=== PATIENT | female | born 1965 | race Caucasian/White ===

== ENCOUNTER → 2017-08-16 | Outpatient (CLI) | payer OTHER ==
[~2017-08-16] MED LIST: ACYCLOVIR400 MG PO; ARIPIPRAZOLE10 MG PO; DULOXETINE HCL30 MG PO; FLOMAX0.4 MG PO; HYDROCODONE BIT1 T11 PO; IBU800 M1 PO; LEADER NIC14 MG/24 H TD; LORAZEPAM1 MG PO; Motrin,Rufen800 MG PO; OMEPRAZOLE D/R20 MG PO; OXYBUTYNIN CHLOR5 MG PO; SIMVASTATIN10 MG PO; TRAZADONE HYDR100 MG PO
== END ==
LOC: RAD 12:36
DX: J40 Bronchitis, not specified as acute or chronic (principal); R06.02 Shortness of breath; Z87.891 Personal history of nicotine dependence

== ENCOUNTER 2017-08-19 23:35 | Emergency (ER) | payer OTHER ==
[~2017-08-19] VITALS: Ht 162.5 cm; Wt 91.6 kg
[2017-08-19 23:55] VITALS: BP 131/88
== END 2017-08-20 03:00 | disposition short-term general hospital (02) ==
LOC: ED 23:35
DX: S01.312A Laceration without foreign body of left ear, initial encounter (principal); Z88.6 Allergy status to analgesic agent; Z91.030 Bee allergy status; Y08.89XA Assault by other specified means, initial encounter; Y93.89 Activity, other specified; Y92.89 Other specified places as the place of occurrence of the external cause; Y99.8 Other external cause status

== ENCOUNTER → 2018-03-03 | Outpatient (CLI) | payer OTHER | END | disposition home or self-care (01) | LOC: MAMMO 10:21 | DX: Z12.31 Encounter for screening mammogram for malignant neoplasm of breast (principal) ==

== ENCOUNTER → 2019-03-28 | Outpatient (CLI) | payer OTHER | END | disposition home or self-care (01) | LOC: MAMMO 14:56 | DX: Z12.31 Encounter for screening mammogram for malignant neoplasm of breast (principal) ==

== ENCOUNTER 2019-07-24 12:21 | Emergency (ER) | payer OTHER ==
[~2019-07-24] VITALS: Ht 162.5 cm; Wt 83.9 kg
[2019-07-24 12:22] VITALS: BP 120/93
[2019-07-24] MEDS ORDERED: NAPROSYN500 MG PO ×2 (13:10→14:19)
[2019-07-24] MEDS ORDERED: AMOXICILLIN500 M2 PO ×2 (13:10→14:19)
== END 2019-07-24 13:31 | disposition home or self-care (01) ==
LOC: ED 12:21
DX: K08.89 Other specified disorders of teeth and supporting structures (principal); Z91.030 Bee allergy status; Z88.5 Allergy status to narcotic agent; Z79.899 Other long term (current) drug therapy

== ENCOUNTER 2019-08-05 17:09 | Emergency (ER) | payer OTHER ==
[~2019-08-05] VITALS: Ht 162.5 cm; Wt 88.9 kg
[~2019-08-05 17:09] MED LIST changes: +AMOXICILLIN500 M2 PO; +NAPROSYN500 MG PO
[2019-08-05 17:11] VITALS: BP 114/76
[2019-08-05] MEDS ORDERED: TYLENOL325 M1 PO (17:36)
[2019-08-05] MEDS ORDERED: NAPROSYN500 MG PO (17:36)
[2019-08-05] MEDS ORDERED: PENICILLIN-VK500 MG PO (17:36)
== END 2019-08-05 18:31 | disposition home or self-care (01) ==
LOC: ED 17:09
DX: K04.7 Periapical abscess without sinus (principal); F17.210 Nicotine dependence, cigarettes, uncomplicated; Z79.899 Other long term (current) drug therapy; Z91.030 Bee allergy status; Z88.5 Allergy status to narcotic agent

== ENCOUNTER → 2019-08-23 | Outpatient (CLI) | payer OTHER ==
[~2019-08-23] MED LIST changes: +PENICILLIN-VK500 MG PO; +TYLENOL325 M1 PO
--- NOTE | ~2019-08-23 | PF ---
[place], [place] PULMONARY FUNCTION TEST NAME: SARAH STEPHENSON UNIT #: [id number] ROOM: DOCTOR: CANDICE GODDARD MD,RAJAT BIRTHDATE: [birth year] DOS: 08/23/2019 PULMONARY FUNCTION TEST HISTORY: The 54-year-old female, height of 64 inches, weight 296 pounds with BMI of 33.6. Test was done, patient's assessment of COPD. The patient reported symptoms of shortness of breath, productive cough and wheezing as well. Tobacco is noted actively of 3/4 pack of cigarettes per day, used for 32 years. SPIROMETRY: FVC was recorded as a 2.92 liters at 83% predicted value, FEV1 of 2.46 liters as 90% predicted value. Ratio of FEV1/FVC recorded as 84%. There were no post-bronchodilator improvement or changes noted of any significance. LUNG VOLUME: Thoracic gas volume 74%, residual volume 89%, total lung capacity 88%. The patient's lung diffusion recorded 85%. The patient's airway resistance and passive conductance noted mildly abnormal with postbronchodilator improvement. FINAL IMPRESSION: Possible consideration of mild reversible obstructive lung disease. Clinical correlation would be advised. RAJAT HARVEY MD CM:PFREPORT:PULMONARY FUNCTION TEST [id number] RAJAT GODDARD MD
== END | disposition home or self-care (01) ==
LOC: CP 12:24
DX: J44.1 Chronic obstructive pulmonary disease with (acute) exacerbation (principal)

== ENCOUNTER 2021-05-26 03:42 | Emergency (ER) | payer OTHER ==
[~2021-05-26] VITALS: Ht 162.5 cm; Wt 102.1 kg
[2021-05-26 03:51] VITALS: BP 136/72
[2021-05-26 04:21] LABS: BASO % 0.2 % (0.0-1.0); HEMATOCRIT 40.8 % (37.0-47.0); LYMPH # 2.2 10*3/uL (1.3-4.4); LYMPH % 47.2 % (27.0-41.0); MEAN CELL VOLUME 87.9 fl (81.0-99.0); MEAN CORPUSCULAR HGB 29.1 pg (27.0-31.0); MEAN CORPUSCULAR HGB CONC 33.1 g/dl (33.0-37.0); MEAN PLATELET VOLUME 10.4 fl (9.6-12.3); MONO # 0.4 10*3/uL (0.1-1.0); MONO % 8.5 % (3.0-9.0); NEUT % 43.9 % (47.0-73.0); PLATELET COUNT AUTOMATED 159 10*3/uL (130-400); RED BLOOD COUNT 4.64 10*6/uL (4.10-5.10); RED CELL DISTRI WIDTH 15.3 % (0-14.5); WHITE BLOOD COUNT 4.6 10*3/uL (4.8-10.8)
[2021-05-26 04:21] LABS: BILIRUBIN Negative (Negative); BLOOD Negative (Negative); CLARITY Clear (Clear); COLOR Yellow (Yellow); GLUCOSE Negative (Negative); KETONE Negative (Negative); LEUKO ESTERASE Negative (Negative); NITRITE Negative (Negative); PH 6.5 (4.5-8.0); UROBILINOGEN 0.2 E.U./dl (0.0-1.0)
[2021-05-26 04:34] LABS: BACTERIA 1+; RBC 16-20 rbc/hpf (0-2)
[2021-05-26 04:41] LABS: ALBUMIN 3.5 gm/dl (3.1-4.5); CREATININE 1.19 mg/dL (0.55-1.02); POTASSIUM 3.9 mmol/L (3.5-5.1); TOTAL PROTEIN 7.2 gm/dL (6.4-8.2)
[2021-05-26] MEDS ORDERED: ZOFRAN4 MG PO (04:55)
== END 2021-05-26 05:41 | disposition home or self-care (01) ==
LOC: ED 03:42
PROVIDERS: Emergency Medicine
DX: U07.1 COVID-19 (principal); Z91.030 Bee allergy status; Z88.5 Allergy status to narcotic agent

== ENCOUNTER → 2021-08-29 | Outpatient (CLI) | payer OTHER ==
[~2021-08-29] MED LIST changes: +ABILIFY20 MG PO; +BUSPIRONE30 MG PO; +FLONASE ALLERG9.9 ML NAS; +NATURE'S BLEND F1 MG PO; +OMEPRAZOLE40 MG PO; +REMERON15 M2 PO; +VIIBRYD40 PO; +VISTARIL50 MG PO; +ZOCOR40 MG PO; +ZOFRAN4 MG PO
== END | disposition home or self-care (01) ==
LOC: CARD 08-27 08:00
PROVIDERS: ATTEND Internal Medicine
DX: R06.00 Dyspnea, unspecified (principal); R07.89 Other chest pain; R06.02 Shortness of breath

== ENCOUNTER → 2021-10-15 | Outpatient (CLI) | payer OTHER ==
[~2021-10-15] MED LIST changes: +EPIPEN 2-P0.3 MG/0.3 IJ; +PROVENTIL HFA6.7 GM INH; +SYMB160 INH; +ZANAFLEX6 M1 PO
== END | disposition home or self-care (01) ==
LOC: CARD 00:08
PROVIDERS: ATTEND Internal Medicine
DX: R07.89 Other chest pain (principal)

== ENCOUNTER → 2022-10-22 | Outpatient (CLI) | payer OTHER | END | disposition home or self-care (01) | LOC: MAMMO 10-06 15:30 | PROVIDERS: ATTEND Internal Medicine | DX: Z12.31 Encounter for screening mammogram for malignant neoplasm of breast (principal); N63.13 Unspecified lump in the right breast, lower outer quadrant; N64.9 Disorder of breast, unspecified ==

== ENCOUNTER → 2023-09-10 | Outpatient (CLI) | payer OTHER | END | disposition home or self-care (01) | LOC: RAD 10:09 | PROVIDERS: ATTEND Nurse Practitioner Family | DX: M25.461 Effusion, right knee (principal); M25.861 Other specified joint disorders, right knee; M25.561 Pain in right knee ==

== ENCOUNTER → 2024-04-14 | Outpatient (CLI) | payer OTHER ==
[2024-04-14 10:11] LABS: ALKALINE PHOSPHATASE 85 U/L (46-116); BUN 10 mg/dl (9-23); CHLORIDE 108 mmol/L (98-107); POTASSIUM 3.6 mmol/L (3.4-5.1); SGPT/ALT 14 U/L (5-49); TOTAL PROTEIN 7.4 gm/dL (6.0-8.0)
== END | disposition home or self-care (01) ==
LOC: LAB 09:20
PROVIDERS: ATTEND Orthopaedic Surgery
DX: M25.569 Pain in unspecified knee (principal); R53.83 Other fatigue

== ENCOUNTER → 2025-01-16 | Outpatient (CLI) | payer OTHER ==
[2025-01-16 16:08] LABS: ALKALINE PHOSPHATASE 84 U/L (46-116); BUN 11 mg/dl (9-23); CHLORIDE 107 mmol/L (98-107); SGPT/ALT 18 U/L (5-49); TOTAL PROTEIN 7.6 gm/dL (6.0-8.0)
== END | disposition home or self-care (01) ==
LOC: MAMMO 01:22 → LAB 01:22 → MAMMO 16:00
PROVIDERS: Orthopaedic Surgery; ATTEND Nurse Practitioner Family
DX: Z12.31 Encounter for screening mammogram for malignant neoplasm of breast (principal); M17.11 Unilateral primary osteoarthritis, right knee; R53.83 Other fatigue; N64.89 Other specified disorders of breast; N63.15 Unspecified lump in the right breast, overlapping quadrants

== ENCOUNTER 2025-02-04 15:58 | Emergency (ER) | payer OTHER ==
[~2025-02-04] VITALS: Ht 162.5 cm; Wt 105.7 kg
[2025-02-04 16:06] VITALS: BP 136/75
[2025-02-04] MEDS ORDERED: SODIUM CHLORIDE 0.9% 1,000 ML IV ONE (16:15)
[2025-02-04] MEDS ORDERED: LORazepam 1 MG TAB PO ONE (16:15)
[2025-02-04 16:39] LABS: BASO % 0.1 % (0.0-1.0); EOS % 0.2 % (1.0-4.0); HEMATOCRIT 45.5 % (37.0-47.0); MEAN CELL VOLUME 88.5 fl (81.0-99.0); MEAN CORPUSCULAR HGB 28.4 pg (27.0-31.0); MEAN CORPUSCULAR HGB CONC 32.1 g/dl (33.0-37.0); MEAN PLATELET VOLUME 9.5 fl (9.6-12.3); MONO % 5.8 % (3.0-9.0); NEUT # 12.3 10*3/uL (2.3-7.9); NEUT % 70.6 % (47.0-73.0); PLATELET COUNT AUTOMATED 322 10*3/uL (130-400); RED BLOOD COUNT 5.14 10*6/uL (4.10-5.10); RED CELL DISTRI WIDTH 15.1 % (0-14.5); WHITE BLOOD COUNT 17.5 10*3/uL (4.8-10.8)
[2025-02-04 16:57] LABS: BUN 17 mg/dl (9-23); CHLORIDE 105 mmol/L (98-107)
[2025-02-04 17:26] LABS: BILIRUBIN 1+ (Negative); BLOOD Negative (Negative); CLARITY Clear (Clear); COLOR Dark Yellow (Yellow); GLUCOSE Negative (Negative); KETONE Trace (Negative); LEUKO ESTERASE 1+ (Negative); NITRITE Negative (Negative); PH 5.5 (4.5-8.0)
[2025-02-04 17:33] LABS: URINE AMPHETAMINES Negative (1000ng/ml); URINE BARBITURATES Negative (200ng/ml); URINE BENZODIAZEPINES Negative (200ng/ml); URINE CANNABINOIDS (THC) Positive (50ng/ml); URINE COCAINE Positive (300ng/ml); URINE METHADONE Negative (300ng/ml); URINE OPIATES Negative (300ng/ml); URINE PHENCYCLIDINE Negative (25ng/ml)
[2025-02-04 17:35] LABS: BACTERIA 2+
[2025-02-04] MEDS ORDERED: cefTRIAXone Sodium 1 GM/10 ML SYR IV ONE (17:40)
[2025-02-04] MEDS ORDERED: SEPTDS PO (17:45)
[2025-02-05] MEDS ORDERED: SEPTDS PO (10:57)
== END 2025-02-04 18:02 | disposition home or self-care (01) ==
LOC: ED 15:58
PROVIDERS: Emergency Medicine
DX: R56.9 Unspecified convulsions (principal); F14.10 Cocaine abuse, uncomplicated; N39.0 Urinary tract infection, site not specified; Z79.899 Other long term (current) drug therapy; F32.A Depression, unspecified; F41.9 Anxiety disorder, unspecified; Z91.030 Bee allergy status; Z88.5 Allergy status to narcotic agent

== ENCOUNTER → 2025-02-14 | Outpatient (CLI) | payer OTHER ==
[~2025-02-14] MED LIST changes: +SEPTDS PO
== END | disposition home or self-care (01) ==
LOC: US 15:50
PROVIDERS: ATTEND Nurse Practitioner Women's Health
DX: N85.8 Other specified noninflammatory disorders of uterus (principal); N95.0 Postmenopausal bleeding; R18.8 Other ascites

== ENCOUNTER → 2025-03-21 | Outpatient (CLI) | payer OTHER ==
[2025-03-21 15:37] LABS: BASO % 0.3 % (0.0-1.0); EOS # 0.1 10*3/uL (0.0-0.4); EOS % 0.7 % (1.0-4.0); HEMATOCRIT 40.6 % (37.0-47.0); MEAN CELL VOLUME 86.8 fl (81.0-99.0); MEAN CORPUSCULAR HGB 28.6 pg (27.0-31.0); MEAN PLATELET VOLUME 10.3 fl (9.6-12.3); MONO # 0.6 10*3/uL (0.1-1.0); MONO % 7.3 % (3.0-9.0); NEUT # 4.8 10*3/uL (2.3-7.9); NEUT % 55.9 % (47.0-73.0); PLATELET COUNT AUTOMATED 261 10*3/uL (130-400); RED BLOOD COUNT 4.68 10*6/uL (4.10-5.10); WHITE BLOOD COUNT 8.7 10*3/uL (4.8-10.8)
[2025-03-21 15:47] LABS: BILIRUBIN Negative (Negative); BLOOD Negative (Negative); CLARITY Clear (Clear); COLOR Yellow (Yellow); GLUCOSE Negative (Negative); KETONE Trace (Negative); LEUKO ESTERASE Negative (Negative); NITRITE Negative (Negative); PH 5.5 (4.5-8.0); SPECIFIC GRAVITY 1.025 (1.001-1.030)
[2025-03-21 15:58] LABS: ALKALINE PHOSPHATASE 91 U/L (46-116); BUN 10 mg/dl (9-23); CHLORIDE 106 mmol/L (98-107); SGPT/ALT 9 U/L (5-49); TOTAL PROTEIN 7.2 gm/dL (6.0-8.0)
[2025-03-21 16:02] LABS: BACTERIA 2+
== END | disposition home or self-care (01) ==
LOC: LAB 15:05
PROVIDERS: ATTEND Orthopaedic Surgery
DX: Z01.818 Encounter for other preprocedural examination (principal)

== ENCOUNTER 2025-04-09 15:46 | Inpatient (IN) | payer OTHER ==
[~2025-04-09] VITALS: Ht 162.5 cm; Wt 109.4 kg
[2025-04-09] VITALS (8 sets, daily range): BP systolic 65–121; BP diastolic 32–59
[2025-04-09] MEDS ORDERED: SODIUM CHLORIDE 0.9% 1,000 ML IV ONE (17:00)
[2025-04-09] MEDS ORDERED: Ondansetron Hydrochloride 4 MG/2 ML VIAL IV ONE (17:00)
[2025-04-09 17:30] LABS: BASO % 0.3 % (0.0-1.0); EOS # 0.1 10*3/uL (0.0-0.4); EOS % 0.8 % (1.0-4.0); HEMATOCRIT 39.5 % (37.0-47.0); MEAN CELL VOLUME 88.6 fl (81.0-99.0); MEAN CORPUSCULAR HGB CONC 31.6 g/dl (33.0-37.0); MEAN PLATELET VOLUME 9.9 fl (9.6-12.3); MONO # 0.8 10*3/uL (0.1-1.0); MONO % 7.6 % (3.0-9.0); NEUT # 6.6 10*3/uL (2.3-7.9); NEUT % 65.9 % (47.0-73.0); PLATELET COUNT AUTOMATED 235 10*3/uL (130-400); RED BLOOD COUNT 4.46 10*6/uL (4.10-5.10); RED CELL DISTRI WIDTH 14.3 % (0-14.5)
[2025-04-09 17:55] LABS: ALKALINE PHOSPHATASE 88 U/L (46-116); BUN 12 mg/dl (9-23); CHLORIDE 105 mmol/L (98-107); CPK 206 U/L (34-171); LIPASE 37 U/L (12-53); POTASSIUM 4.4 mmol/L (3.4-5.1); SGPT/ALT 11 U/L (5-49); TOTAL PROTEIN 6.7 gm/dL (6.0-8.0)
[2025-04-09] MEDS ORDERED: OXYBUTYNIN5 MG PO (18:43)
[2025-04-09] MEDS ORDERED: LIPITOR40 MG PO (18:43)
[2025-04-09] MEDS ORDERED: CLONIDINE0.2 MG PO (18:44)
[2025-04-09] MEDS ORDERED: SINGULAIR10 M1 PO (18:44)
[2025-04-09] MEDS ORDERED: INGREZZA60 MG PO (18:45)
[2025-04-09] MEDS ORDERED: CELEXA10 MG PO (18:45)
[2025-04-09] MEDS ORDERED: MELOXICAM15 MG PO (18:45)
[2025-04-09] MEDS ORDERED: OMEPRAZOLE MAGN20 MG PO (18:45)
[2025-04-09] MEDS ORDERED: TRAZODONE50 MG PO (18:46)
[2025-04-09 19:01] LABS: BILIRUBIN Negative (Negative); BLOOD Negative (Negative); CLARITY Clear (Clear); COLOR Yellow (Yellow); GLUCOSE Negative (Negative); KETONE Negative (Negative); LEUKO ESTERASE Negative (Negative); NITRITE Negative (Negative); PH 6.5 (4.5-8.0)
[2025-04-09 19:16] LABS: MUCOUS TRACE; WBC 0-2 wbc/hpf (0-5)
[2025-04-09] MEDS ORDERED: Ondansetron Hydrochloride 4 MG/2 ML VIAL IV PRN (20:20)
[2025-04-09] MEDS ORDERED: ACETAMINOPHEN 325 MG TAB PO PRN (20:20)
[2025-04-09] MEDS ORDERED: ACETAMINOPHEN 650 MG SUPP R PRN (20:20)
[2025-04-09] MEDS ORDERED: BISACODYL 5 MG TAB PO PRN (20:20)
[2025-04-09] MEDS ORDERED: BISACODYL 10 MG SUPP R PRN (20:20)
[2025-04-09] MEDS ORDERED: Magnesium Hydroxide 30 ML UDC PO PRN (20:20)
[2025-04-09] MEDS ORDERED: SODIUM CHLORIDE 0.9% 1,000 ML IV SCH (20:30)
[2025-04-10] VITALS (7 sets, daily range): BP systolic 98–154; BP diastolic 57–93
[2025-04-10] MEDS ORDERED: EPINEPHrine Hydrochloride 1 MG/ML AMP IM PRN (01:10)
[2025-04-10] MEDS ORDERED: BUDESONIDE 0.5 MG AMP NEB SCH (01:20)
[2025-04-10 05:56] LABS: BASO % 0.5 % (0.0-1.0); EOS # 0.1 10*3/uL (0.0-0.4); EOS % 1.3 % (1.0-4.0); HEMATOCRIT 40.4 % (37.0-47.0); MEAN CELL VOLUME 89.2 fl (81.0-99.0); MEAN CORPUSCULAR HGB 27.8 pg (27.0-31.0); MEAN CORPUSCULAR HGB CONC 31.2 g/dl (33.0-37.0); MEAN PLATELET VOLUME 10.5 fl (9.6-12.3); MONO # 0.5 10*3/uL (0.1-1.0); MONO % 7.4 % (3.0-9.0); NEUT # 2.8 10*3/uL (2.3-7.9); NEUT % 46.2 % (47.0-73.0); PLATELET COUNT AUTOMATED 213 10*3/uL (130-400); RED BLOOD COUNT 4.53 10*6/uL (4.10-5.10); RED CELL DISTRI WIDTH 14.3 % (0-14.5); WHITE BLOOD COUNT 6.1 10*3/uL (4.8-10.8)
[2025-04-10] MEDS ORDERED: Pantoprazole Sodium 40 MG TAB PO SCH (06:00)
[2025-04-10 06:12] LABS: ACT PARTIAL THROMBO TIME 24.6 SECONDS (20.0-32.1); ALKALINE PHOSPHATASE 84 U/L (46-116); BUN 10 mg/dl (9-23); CHLORIDE 110 mmol/L (98-107); CHOLESTEROL 168 mg/dL (<200); FREE T4 0.94 ng/dl (0.89-1.76); LDL CHOLESTEROL 101 mg/dL (9-159); POTASSIUM 4.2 mmol/L (3.4-5.1); SGPT/ALT 11 U/L (5-49); TOTAL PROTEIN 6.3 gm/dL (6.0-8.0); TRIGLYCERIDES 155 mg/dl (<150)
[2025-04-10] MEDS ORDERED: SUCRALFATE 1 GM TAB PO SCH (07:30)
[2025-04-10] MEDS ORDERED: Dicyclomine Hydrochloride 10 MG CAP PO PRN (07:45)
[2025-04-10] MEDS ORDERED: Enoxaparin Sodium 40 MG/0.4 ML SYR SC SCH (10:00)
[2025-04-10] MEDS ORDERED: traZODone Hydrochloride 50 MG TAB PO SCH (10:00)
[2025-04-10] MEDS ORDERED: Montelukast Sodium 10 MG TAB PO SCH (10:00)
[2025-04-10] MEDS ORDERED: cloNIDine Hydrochloride 0.2 MG TAB PO SCH (10:00)
[2025-04-10] MEDS ORDERED: CITALOPRAM 20 MG TAB PO SCH (10:00)
[2025-04-10] MEDS ORDERED: FLUTICASONE PROPIONATE 250 mcg INHALER INH SCH (10:00)
[2025-04-10] MEDS ORDERED: OMEPRAZOLE 20 MG CAP PO SCH (10:00)
[2025-04-10] MEDS ORDERED: ATORVASTATIN CALCIUM 40 MG TABLET PO SCH (10:00)
[2025-04-10] MEDS ORDERED: Meloxicam 15 MG TAB PO SCH (10:00)
[2025-04-10] MEDS ORDERED: Oxybutynin Chloride 5 MG TAB PO SCH (10:00)
[2025-04-10] MEDS ORDERED: CALCIUM (TUMS) 500MG PO ONE (21:40)
[2025-04-11] VITALS: BP 104/49
[2025-04-11 05:31] LABS: BUN 10 mg/dl (9-23); CHLORIDE 108 mmol/L (98-107); POTASSIUM 4.1 mmol/L (3.4-5.1)
[2025-04-11 06:13] LABS: BASO % 0.7 % (0.0-1.0); EOS # 0.1 10*3/uL (0.0-0.4); EOS % 1.3 % (1.0-4.0); HEMATOCRIT 35.6 % (37.0-47.0); MEAN CELL VOLUME 89.2 fl (81.0-99.0); MEAN CORPUSCULAR HGB 28.3 pg (27.0-31.0); MEAN CORPUSCULAR HGB CONC 31.7 g/dl (33.0-37.0); MEAN PLATELET VOLUME 11.1 fl (9.6-12.3); MONO # 0.4 10*3/uL (0.1-1.0); MONO % 7.4 % (3.0-9.0); NEUT % 35.9 % (47.0-73.0); PLATELET COUNT AUTOMATED 178 10*3/uL (130-400); RED BLOOD COUNT 3.99 10*6/uL (4.10-5.10); RED CELL DISTRI WIDTH 14.3 % (0-14.5); WHITE BLOOD COUNT 5.5 10*3/uL (4.8-10.8)
[2025-04-11 08:00] VITALS: BP 138/69
[2025-04-11 12:00] VITALS: BP 134/80; BP 134/91
[2025-04-11] MEDS ORDERED: Meclizine Hydrochloride 25 MG TAB PO SCH (15:03)
[2025-04-11 16:00] VITALS: BP 137/54
[2025-04-11] MEDS ORDERED: GOOD NEIGHBOR M25 M1 PO (16:08)
[2025-04-11] MEDS ORDERED: traZODone Hydrochloride 50 MG TAB PO SCH (22:00)
== END 2025-04-11 17:29 | disposition home or self-care (01) | DRG 48 ==
LOC: ED 15:46 → EDHOLD 19:09 → 4E 19:09 → EDHOLD 20:50 → 4E 04-10 08:04
PROVIDERS: Emergency Medicine; Student in an Organized Health Care Education/Training Program; ADMIT Internal Medicine; ATTEND Internal Medicine
DX: G90.9 Disorder of the autonomic nervous system, unspecified (principal); R57.1 Hypovolemic shock; E86.0 Dehydration; K80.20 Calculus of gallbladder without cholecystitis without obstruction; I95.9 Hypotension, unspecified; I65.23 Occlusion and stenosis of bilateral carotid arteries; F17.210 Nicotine dependence, cigarettes, uncomplicated; F32.9 Major depressive disorder, single episode, unspecified; F41.9 Anxiety disorder, unspecified; N93.9 Abnormal uterine and vaginal bleeding, unspecified; Z88.5 Allergy status to narcotic agent; Z88.8 Allergy status to other drugs, medicaments and biological substances; Z91.030 Bee allergy status; Z82.3 Family history of stroke; Z83.6 Family history of other diseases of the respiratory system; Z83.3 Family history of diabetes mellitus; Z82.49 Family history of ischemic heart disease and other diseases of the circulatory system

== ENCOUNTER → 2025-07-27 | Outpatient (CLI) | payer OTHER ==
[~2025-07-27] MED LIST changes: +CELEXA10 MG PO; +CLONIDINE0.2 MG PO; +GOOD NEIGHBOR M25 M1 PO; +INGREZZA60 MG PO; +LIPITOR40 MG PO; +MELOXICAM15 MG PO; +OMEPRAZOLE MAGN20 MG PO; +OXYBUTYNIN5 MG PO; +SINGULAIR10 M1 PO; +TRAZODONE50 MG PO
== END | disposition home or self-care (01) ==
LOC: RAD 12:54
PROVIDERS: ATTEND Family Medicine
DX: K59.00 Constipation, unspecified (principal); R10.31 Right lower quadrant pain

== ENCOUNTER → 2025-08-27 | Outpatient (CLI) | payer OTHER | END | disposition home or self-care (01) | LOC: US 01:26 | PROVIDERS: ATTEND Urology | DX: N28.1 Cyst of kidney, acquired (principal) ==

== ENCOUNTER 2025-09-12 19:59 | Emergency (ER) | payer OTHER ==
[~2025-09-12] VITALS: Ht 162.5 cm; Wt 105.7 kg
[2025-09-12 20:08] VITALS: BP 133/74
[2025-09-12 20:39] LABS: BASO # 0.0 10*3/uL (0.0-0.1); BASO % 0.3 % (0.0-1.0); EOS # 0.1 10*3/uL (0.0-0.4); EOS % 0.9 % (1.0-4.0); MEAN CELL VOLUME 87.4 fl (81.0-99.0); MEAN CORPUSCULAR HGB 27.2 pg (27.0-31.0); MEAN PLATELET VOLUME 9.7 fl (9.6-12.3); MONO # 0.6 10*3/uL (0.1-1.0); MONO % 7.1 % (3.0-9.0); NEUT # 4.9 10*3/uL (2.3-7.9); NEUT % 54.9 % (47.0-73.0); NUCLEATED RED BLOOD CELL 0.0 % (0.0-0.0); NUCLEATED RED BLOOD CELL 0.0 10*3/uL (0.0-0.0); PLATELET COUNT AUTOMATED 264 10*3/uL (130-400); RED CELL DISTRI WIDTH 16.5 % (0-14.5)
[2025-09-12 20:58] LABS: BUN 9 mg/dl (9-23)
[2025-09-12] MEDS ORDERED: ZITHROMAX250 MG PO (23:33)
[2025-09-12] MEDS ORDERED: PREDNISONE20 M1 PO (23:33)
== END 2025-09-12 23:45 | disposition home or self-care (01) ==
LOC: ED 19:59
PROVIDERS: Internal Medicine
DX: B34.9 Viral infection, unspecified (principal); F41.9 Anxiety disorder, unspecified; J45.909 Unspecified asthma, uncomplicated; K21.9 Gastro-esophageal reflux disease without esophagitis; F31.9 Bipolar disorder, unspecified; E78.00 Pure hypercholesterolemia, unspecified; Z20.822 Contact with and (suspected) exposure to COVID-19; Z90.89 Acquired absence of other organs; Z91.030 Bee allergy status; Z88.5 Allergy status to narcotic agent; Z88.8 Allergy status to other drugs, medicaments and biological substances